=== PATIENT | male | born 1945 | race Caucasian/White ===

== ENCOUNTER 2018-05-29 09:16 | Day surgery (SDC) | payer OTHER, MEDICAID ==
[~2018-05-29 09:16] MED LIST: ACETAMINOPHEN 325 MG TAB PO PRN; ASPIRIN EC 325 MG TAB PO ONE; DIAZEPAM 5 MG TAB PO ONE; FAMOTIDINE 20 MG TAB PO ONE; NITROGLYCERIN 0.4 MG BTL SL PRN; NS 1,000 ML IV SCH; TEMAZEPAM 15 MG CAP PO PRN; diphenhydrAMINE 25 MG CAP PO ONE
[2018-05-29] MEDS ORDERED: FAMOTIDINE 20 MG TAB ONE (09:48)
[2018-05-29] MEDS ORDERED: DIAZEPAM 5 MG TAB ONE (09:48)
[2018-05-29] MEDS ORDERED: diphenhydrAMINE 25 MG CAP PO ONE (09:48)
[2018-05-29] MEDS ORDERED: ASPIRIN EC 325 MG TAB PO ONE (09:48)
[2018-05-29 10:08] LABS: PLATELET COUNT 244 10^3/uL (150-400)
[2018-05-29 10:16] LABS: INR 0.98 (0.83-1.16); PROTIME(PATIENT) 13.2 SEC (12.0-15.0)
[2018-05-29] MEDS ORDERED: IOPAMIDOL (ISOVUE-370) 150 ML BTL IV ONE (10:40)
[2018-05-29] MEDS ORDERED: MIDAZOLAM 2 MG/2 ML VIAL ONE (10:40)
[2018-05-29] MEDS ORDERED: fentaNYL 100 MCG/2 ML INJ ONE (10:40)
[2018-05-29] MEDS ORDERED: LIDOCAINE 1% 300 MG/30 ML SDV ONE (10:40)
--- NOTE | 2018-05-29 11:09 | PDPROPOC ---
Sedation Plan of Care Sedation Plan of Care: vital signs stable, mental status noted, patient educated of risks, benefits, alternatives, patient can tolerate sedation ASA Classification: ASA 1 Planned drugs: fentanyl, midazolam Mallampati Score: Class 1 Mallampati Reference Image: Patient passed 3-3-2 rule?: Yes
--- NOTE | 2018-05-29 11:10 | PDHPUP ---
History & Physical Update H&P update statement: This history and physical update is based on an assessment of the patient which was completed after admission or registration (within 24 hours), but prior to the surgery/procedure. H&P update: H&P reviewed & patient examined, no change in patient's condition since H&P completed
[2018-05-29] MEDS ORDERED: VERAPAMIL 5 MG/2 ML VIAL ONE (11:25)
[2018-05-29] MEDS ORDERED: HEPARIN 10,000 UNIT/10 ML MDV (1,000 UNIT/ML) ONE (11:25)
[2018-05-29] MEDS ORDERED: hydrALAZINE 20 MG/ML VIAL ONE (11:45)
[2018-05-29] MEDS ORDERED: ONDANSETRON 4 MG/2 ML VIAL IVP PRN (12:12)
[2018-05-29] MEDS ORDERED: ATROPINE SULFATE 1 MG/10 ML SYR IVP PRN (12:12)
--- NOTE | 2018-05-29 12:19 | PDDXCAT ---
Diagnostic Cath Note - . Date: 05/29/18 [employer]: Bruno Indication: CCC Class III and IV angina on medical treatment, other (Known coronary artery disease with previous LAD PCI and stenting.) - Procedure Access: right groin (Initial access was attempted at the right radial artery without success.) Procedure: left heart catheterization, coronary angiography, left ventriculogram - Materials Left Heart Cath size: 5F Left Heart Cath materials: JL3.5, JR4.0, pigtail - Findings-Left Heart Catheterization LM: Moderate caliber vessel. Appropriate bifurcation into the left anterior descending and circumflex distributions. Minimal luminal irregularities without obstructive lesions. LAD: Prior to injection of contrast dye a stent is noted in the proximal portion of the LAD. The LAD is a moderate caliber vessel. There are 2 principal diagonal branches. The previously placed stent in the proximal segment is widely patent. There are luminal irregularities up to 30% noted in the mid vessel. LCX: Moderate caliber vessel. 2 obtuse marginal branches are identified. There are luminal irregularities with no obstructive lesions. RCA: Moderate caliber and dominant. The PDA and a posterolateral branch are identified. There are minimal luminal irregularities without obstructive lesions. LVEF: 70%. Wall motion: Normal. Complications: None. Estimated blood loss: <50ml Closure method: manual pressure Assessment: 1. Previously placed LAD stent which is widely patent. No hemodynamically significant lesions identified. 2. Preserved left ventricular systolic function with an ejection fraction of 70%. 3. Likely noncardiac chest pain. Plan: Continued therapy for secondary prevention.
--- NOTE | 2018-05-29 13:39 | ECHO ---
[email or web address] [address] [address] Main: [phone] Fax: Transthoracic Echocardiogram Name: CLOVIS ROD MR#: [id number] Study Date: 05/29/2018 Study Time: 10:23 AM Date of : 1945 Age: 73 year(s) Height: 162.6 cm (64 in.) Weight: 56.7 kg (125 lb.) BSA: 1.6 m2 Gender: Male Examination: Echo Indication: Pre Cath, H/O CAD Image Quality: Contrast: Requested by: Lars Christie BP: 187 mmHg/103 mmHg Heart Rate: Rhythm: Normal sinus rhythm Indication: Pre Cath, H/O CAD Procedure Staff Carpet Technician: Dhruv Nuñez RDCS Reading Physician: Kervin Moore MD Requesting Provider: Conclusions: Normal size left ventricle. Normal global systolic LV function. EF is 62 %. The mitral valve is normal in appearance and function. Cannot rule out bicuspid aortic valve. Mild aortic valve regurgitation is present. No aortic valve stenosis is present. The pulmonary artery pressure is normal. When compared to the 10/08/12 study. The degree of aortic insufficiency has increased from trace to mild. Measurements: Chambers Valvular Assessment AV/MV Valvular Assessment TV/PV Normal Normal Normal Name Value Range Name Value Range Name Value Range Ao Madiha (MM): 3.4 cm (2.2 cm-3.7 AV Vmax: 1.40 m/s (1 m/s-1.7 PV Vmax: 0.84 m/s (0.6 m/s-0.9 cm) m/s) m/s) IVSd (2D): 0.8 cm (0.6 cm-1.1 AV maxP mmHg ( - ) PV PGmax: 3 mmHg ( - ) cm) LVOT Vmax: 0.85 m/s (0.7 m/s-1.1 LVDd (2D): 4.3 cm (4.2 cm-5.9 m/s) cm) AR (PHT): 786 ms ( - ) LVDs (2D): 2.9 cm (2.1 cm-4 MV E Vmax: 0.51 m/s ( - ) cm) MV A Vmax: 0.63 m/s ( - ) LVPWd (2D): 0.8 cm (0.6 cm-1 MV E/A: 0.81 ( - ) cm) LVEF (2D): 62 (>=54 %) RVDd(2D): 2.4 cm (1.9 cm-3.8 cmmm) Continued Measurements: Patient: CLOVIS ROD Study Date: 05/29/2018 Page 1 of 2 10:23 AM Chambers Valvular Assessment AV/MV Name Value Name Value LADs: 3.1 cm MV E' Septal: 0.06 m/s LADs Lon.0 cm MV E/E' Septal: 8.70 LA Area: 16.6 cm2 MV E/E' Lateral: 10.60 LA Volume: 44 ml AR Vmax: 2.66 cm/s LA Volume Index: 27.5 ml/m2 Findings: Left Ventricle: Normal size left ventricle. No LV hypertrophy. Normal global systolic LV function. EF is 62 %. No regional wall motion abnormality. Grade 1 diastolic dysfunction (abnormal relaxation). Right Ventricle: Normal size right ventricle. Normal RV function. Left Atrium: The left atrium is normal in size. Right Atrium: The right atrium is normal in size. Mitral Valve: The mitral valve is normal in appearance and function. There is no significant mitral valve regurgitation. No mitral stenosis is present. Aortic Valve: Cannot rule out bicuspid aortic valve. Mild aortic valve regurgitation is present. No aortic valve stenosis is present. Tricuspid Valve: The tricuspid valve is normal in appearance and function. Trivial tricuspid valve regurgitation. The pulmonary artery pressure is normal. Pulmonic Valve: The pulmonic valve is normal in appearance and function. Aorta: The aorta is normal. Pericardium: No pericardial effusion. (No Signature Object) Patient: CLOVIS ROD Study Date: 05/29/2018 Page 2 of 2 10:23 AM [id number]
--- NOTE | 2018-05-29 17:42 | CPEKG ---
Test Reason : OPEN Blood Pressure : / mmHG Vent. Rate : 077 BPM Atrial Rate : 076 BPM P-R Int : 165 ms QRS Dur : 085 ms QT Int : 410 ms P-R-T Axes : 070 056 041 degrees QTc Int : 465 ms Sinus rhythm Confirmed by Cheikh León ([id number]) on 05/29/2018 5:42:02 PM Referred By: Confirmed By:Cheikh León
== END 2018-05-29 18:59 | disposition home or self-care (01) ==
LOC: FCATH 09:16 → EEVIPCON 09:16 → FCATH 18:59
PROVIDERS: ATTEND Internal Medicine Cardiovascular Disease
PROC: 4A023N8 Measurement of Cardiac Sampling and Pressure, Bilateral, Percutaneous Approach (ICD-10-PCS; principal; 2018-05-29)
PROC: B2151ZZ Fluoroscopy of Left Heart using Low Osmolar Contrast (ICD-10-PCS; principal; 2018-05-29)
PROC: B2111ZZ Fluoroscopy of Multiple Coronary Arteries using Low Osmolar Contrast (ICD-10-PCS; principal; 2018-05-29)
PROC: B245ZZ4 Ultrasonography of Left Heart, Transesophageal (ICD-10-PCS; principal; 2018-05-29)
DX: I25.119 Atherosclerotic heart disease of native coronary artery with unspecified angina pectoris (principal); Z95.5 Presence of coronary angioplasty implant and graft
CPT/HCPCS: J0360; J1644; J2250; J3010; Q9967